=== PATIENT | female | born 2000 | race African-American/Black ===

== ENCOUNTER 2024-09-22 19:09 | Emergency (ER) | payer OTHER ==
[~2024-09-22] VITALS: Ht 162.6 cm; Wt 70.5 kg
[2024-09-22 19:18] VITALS: TEMP 37.2; O2SAT 99
[2024-09-22 20:03] LABS: HEMOGLOBIN. 12.2 g/dL (12.0-16.0)
[2024-09-22 20:05] LABS: BASOPHILS % 0.3 % (0.0-2.0); EOSINOPHILS % 0.8 % (0.0-5.0); HEMATOCRIT. 37.0 % (36.0-48.0); LYMPHOCYTES % 30.5 % (20.0-50.0); MEAN PLATELET VOLUME 8.8 fl (7.4-10.4); MONOCYTES % 9.6 % (2.0-8.0); NEUTROPHILS % 58.8 % (40.0-76.0); PLATELET 194 x1000/uL (130-400); RED BLOOD CELL COUNT 4.43 mill/uL (4.2-5.4); RED CELL DISTRIBUTION WIDTH 13.4 % (11.6-14.6)
[2024-09-22 20:10] LABS: INR 1.1
[2024-09-22 20:15] LABS: CREATININE 0.9 mg/dL (0.6-1.0); UREA NITROGEN BLOOD 11 mg/dL (9-23)
[2024-09-22 20:16] LABS: B-HCG QUANTITATIVE 723 mIU/mL (<6)
[2024-09-22] MEDS: ACETAMINOPHEN 325MG TABLET PO ONE (22:35)
[2024-09-22 23:52] VITALS: BP 115/75; PULSE 71; RESP 18; O2SAT 98
== END 2024-09-22 23:54 | disposition home or self-care (01) ==
LOC: ER 19:09
DX: O03.9 Complete or unspecified spontaneous abortion without complication (principal); Z3A.01 Less than 8 weeks gestation of pregnancy
CPT/HCPCS: 36415; 76801; 80048; 84702; 85025; 86850; 86900; 99284